=== PATIENT | male | born 1950 | race Caucasian/White ===

== ENCOUNTER 2024-01-16 11:45 | Inpatient (IN) | payer MEDICARE, OTHER ==
[2024-01-17] MEDS ORDERED: HYDROcodone/Acetaminophen 10/325 mg Tablet PO PRN (13:22)
[2024-01-17] MEDS ORDERED: Nitroglycerin 0.4 MG TAB (25 Tab Bottle) SL PRN (13:22)
[2024-01-17] MEDS ORDERED: Bisacodyl 5 MG TAB PO PRN (13:24)
[2024-01-17] MEDS ORDERED: Ondansetron ODT 4 MG TAB SL PRN (13:24)
[2024-01-17] MEDS: Gabapentin 300 MG CAP PO SCH (14:56)
[2024-01-17] MEDS: HYDROcodone/Acetaminophen 10/325 mg Tablet PO PRN (15:38)
[2024-01-17] MEDS: Nicotine 21 MG PATCH TOP PRN (16:07)
[2024-01-17] MEDS: Senokot S 8.6-50 MG TAB PO SCH (21:46)
[2024-01-17] MEDS: Famotidine 20 MG TAB PO SCH (21:48)
[2024-01-17] MEDS: Atorvastatin Calcium 40 MG TAB PO SCH (21:48)
[2024-01-18] MEDS: Transdermal Patch Removal TOP SCH (00:20)
[2024-01-18 05:58] LABS: #Basophils 0.1 thou/uL (0.0-0.2); #Eosinphils 0.2 thou/uL (0.0-0.7); #Lymphocytes 0.9 thou/uL (1.20-3.40); #Monocytes 0.7 thou/uL (0.11-0.59); %Basophils 1.3 % (0.0-1.0); %Eosinophils 3.7 % (0.0-10.0); %Monocytes 11.3 % (0.0-10.0); %Neutrophils 67.8 % (42.0-75.0); Hematocrit 35.6 % (42.0-52.0); Hemoglobin 11.1 g/dL (14.0-18.0); Mean Corpuscular HGB CONC 31.1 g/dL (32.0-36.0); Mean Corpuscular Volume 86.8 fl (78.0-98.0); Mean Platelet Volume 6.6 fL (7.4-10.4); Platelet Count 174 10x3/uL (130-400); RBC Distribution Width 12.9 % (11.5-14.5); White Blood Cell (WBC) Count 5.9 10x3/uL (4.8-10.8)
[2024-01-18 06:13] LABS: ALT (SGPT) 22 U/L (8-55); AST (SGOT) 18 U/L (5-34); Albumin 3.5 g/dL (3.4-4.8); Alkaline Phosphatase 203 U/L (40-110); Anion Gap 15 mmol/L (10-20); BUN (Urea Nitrogen) 17 mg/dL (8.4-25.7); Calc. Creatinine Clearance 63 mL/min (70-130); Calcium 9.1 mg/dL (7.8-10.44); Carbon Dioxide 23 mmol/L (23-31); Chloride 102 mmol/L (98-107); Estimated GFR 92; Globulin 2.9 g/dL (2.4-3.5); Glucose 85 mg/dL (83-110); Potassium 4.1 mmol/L (3.5-5.1); Protein, Total 6.4 g/dL (5.8-8.1); Sodium 136 mmol/L (136-145)
[2024-01-18] MEDS: Calcium Carbonate 600 MG + Vit D TAB PO SCH (09:09)
[2024-01-18] MEDS: Polyethylene Glycol 3350 17 GM Packet PO SCH (09:11)
[2024-01-18] MEDS: Aspirin 81 mg Enteric Coated Tablet PO SCH (09:12)
[2024-01-18] MEDS: Pantoprazole DR 40 MG TAB PO SCH (09:12)
[2024-01-18] MEDS: Mirabegron ER 25 MG ER.TAB PO SCH (09:12)
[2024-01-18] MEDS: Clopidogrel Bisulfate 75 MG TAB PO SCH (09:12)
[2024-01-18] MEDS: Enoxaparin 30 MG (0.3 mL) SYRINGE SC SCH (09:13)
[2024-01-18] MEDS: Lidocaine 4% Patch TD SCH (09:14)
[2024-01-18] MEDS: Timolol 0.5% Ophth Soln 5 ml Bottle EA EYE SCH (09:16)
[2024-01-24 06:17] LABS: #Basophils 0.1 thou/uL (0.0-0.2); #Eosinphils 0.3 thou/uL (0.0-0.7); #Lymphocytes 0.9 thou/uL (1.20-3.40); #Monocytes 0.6 thou/uL (0.11-0.59); #Neutrophils 4.1 thou/uL (1.40-6.50); %Basophils 1.6 % (0.0-1.0); %Eosinophils 5.2 % (0.0-10.0); %Lymphocytes 15.3 % (21.0-51.0); %Monocytes 10.2 % (0.0-10.0); %Neutrophils 67.6 % (42.0-75.0); Hematocrit 33.7 % (42.0-52.0); Hemoglobin 10.2 g/dL (14.0-18.0); Mean Corpuscular HGB CONC 30.1 g/dL (32.0-36.0); Mean Corpuscular Hemoglobin 26.4 pg (27.0-31.0); Mean Corpuscular Volume 87.8 fl (78.0-98.0); Mean Platelet Volume 6.9 fL (7.4-10.4); Platelet Count 169 10x3/uL (130-400); RBC Distribution Width 13.1 % (11.5-14.5); Red Blood Cell (RBC) Count 3.84 mill/uL (4.70-6.10); White Blood Cell (WBC) Count 6.1 10x3/uL (4.8-10.8)
[2024-01-24 06:31] LABS: Anion Gap 13 mmol/L (10-20); BUN (Urea Nitrogen) 24 mg/dL (8.4-25.7); Calc. Creatinine Clearance 58 mL/min (70-130); Calcium 8.6 mg/dL (7.8-10.44); Carbon Dioxide 21 mmol/L (23-31); Chloride 105 mmol/L (98-107); Estimated GFR 89; Glucose 88 mg/dL (83-110); Sodium 135 mmol/L (136-145)
[2024-01-24 20:28] VITALS: BMI 20.6
[2024-01-26] MEDS: Enoxaparin 40 MG (0.4 mL) SYRINGE SC SCH (07:47)
[2024-01-26] MEDS: Acetaminophen 325 MG TAB PO PRN (15:16)
[2024-02-01 06:05] LABS: #Basophils 0.1 thou/uL (0.0-0.2); #Eosinphils 0.3 thou/uL (0.0-0.7); #Lymphocytes 0.9 thou/uL (1.20-3.40); #Monocytes 0.7 thou/uL (0.11-0.59); #Neutrophils 3.3 thou/uL (1.40-6.50); %Basophils 1.4 % (0.0-1.0); %Eosinophils 5.4 % (0.0-10.0); %Lymphocytes 17.8 % (21.0-51.0); %Monocytes 13.1 % (0.0-10.0); %Neutrophils 62.3 % (42.0-75.0); Hematocrit 33.7 % (42.0-52.0); Hemoglobin 10.6 g/dL (14.0-18.0); Mean Corpuscular HGB CONC 31.4 g/dL (32.0-36.0); Mean Corpuscular Hemoglobin 26.8 pg (27.0-31.0); Mean Corpuscular Volume 85.5 fl (78.0-98.0); Mean Platelet Volume 7.1 fL (7.4-10.4); Platelet Count 144 10x3/uL (130-400); Red Blood Cell (RBC) Count 3.94 mill/uL (4.70-6.10); White Blood Cell (WBC) Count 5.2 10x3/uL (4.8-10.8)
[2024-02-01 06:18] LABS: Anion Gap 15 mmol/L (10-20); BUN (Urea Nitrogen) 24 mg/dL (8.4-25.7); Calc. Creatinine Clearance 59 mL/min (70-130); Carbon Dioxide 22 mmol/L (23-31); Chloride 103 mmol/L (98-107); Estimated GFR 90; Glucose 76 mg/dL (83-110); Sodium 136 mmol/L (136-145)
[2024-02-03 07:12] VITALS: BP 137/69; TEMP 97.6
== END 2024-02-03 14:56 | disposition home health service (06) | DRG 561 ==
LOC: PREOBSVTOIN 11:45 → NAV ACUTE 01-17 12:04
PROVIDERS: ADMIT Family Medicine; ATTEND Family Medicine
DX: S32.591D Other specified fracture of right pubis, subsequent encounter for fracture with routine healing (principal); R53.81 Other malaise; M51.9 Unspecified thoracic, thoracolumbar and lumbosacral intervertebral disc disorder; I25.10 Atherosclerotic heart disease of native coronary artery without angina pectoris; I10 Essential (primary) hypertension; E78.5 Hyperlipidemia, unspecified; K21.9 Gastro-esophageal reflux disease without esophagitis; Z66 Do not resuscitate; G89.29 Other chronic pain; Z98.41 Cataract extraction status, right eye; Z98.42 Cataract extraction status, left eye; Z98.890 Other specified postprocedural states; Z79.899 Other long term (current) drug therapy; Z79.82 Long term (current) use of aspirin; I73.9 Peripheral vascular disease, unspecified; F17.210 Nicotine dependence, cigarettes, uncomplicated
CPT/HCPCS: 36415; 80048; 80053; 85025; J1650